=== PATIENT | female | born 1965 | race Caucasian/White ===

== ENCOUNTER 2021-11-06 11:56 | Emergency (ER) | payer BC ==
[~2021-11-06] VITALS: Ht 165.1 cm; Wt 70.3 kg
[2021-11-06 11:56] VITALS: BP_SYST 126
--- NOTE | 2021-11-06 11:56 | NUR ---
BROUGHT IN BY [facility], PLACED IN BED #3 AND TRIAGED. REPORT GIVEN MIKIE
--- NOTE | 2021-11-06 11:58 | NUR ---
DR. NUÑEZ AT BEDSIDE TO ASSESS PT.
--- NOTE | 2021-11-06 11:58 | NUR ---
PT BIBA, WITH C/O C/P. PT GIVEN ASA AND NITRO IN FIELD WITH NO RESOLVE, PT CALMED AFTER CONVERSATION WITH MEDICS. EKG NORMAL. PT IS AAOX4. RESP E/U. ON RA. TELE READING SINUS TACH.
[2021-11-06] MEDS ORDERED: MAG HYDROX/AL HYDROX/SIMETH 30 ML, DICYCLOMINE HCL 20 MG, LIDOCAINE VISCOUS 2% 15ML (PO... PO ONE ×3 (12:15)
--- NOTE | 2021-11-06 12:30 | NUR ---
LAB DRAW OBTAINED. MEDICATION ORAL GIVEN.
[2021-11-06 12:32] LABS: BASOPHILS % (AUTO) 0.4 % (0.0-2.0); EOSINOPHILS % (AUTO) 0.4 % (0.0-4.0); HEMATOCRIT 36.8 % (36-48); HEMOGLOBIN 12.5 g/dL (12.0-16.0); LYMPHOCYTES # (AUTO) 0.4 K/uL (1.0-5.5); LYMPHOCYTES % (AUTO) 5.4 % (20.5-51.5); MEAN CORPUSCULAR HEMOGLOBIN 28 pg (27-31); MEAN CORPUSCULAR HGB CONC 34 % (32-36); MEAN CORPUSCULAR VOLUME 84 fL (79.0-98.0); MONOCYTES # (AUTO) 0.3 K/uL (0.0-1.0); NEUTROPHILS # (AUTO) 6.9 K/uL (1.8-7.7); NEUTROPHILS % (AUTO) 89.8 % (40.0-70.0); PLATELET COUNT (AUTO) 275 K/uL (130-430); WHITE BLOOD COUNT (AUTO) 7.7 K/uL (4.8-10.8)
[2021-11-06 12:51] LABS: ANION GAP 8 (5-15); CALCIUM 8.8 mg/dL (8.4-11.0); CHLORIDE 103 mmol/L (98-107); CREATININE 0.83 mg/dL (0.55-1.30); GLUCOSE 95 mg/dL (70-99); SODIUM SERUM 135 mmol/L (136-145); UREA NITROGEN, BLOOD 18 mg/dL (8-21)
[2021-11-06 12:53] LABS: GFR AFRICAN AMERICAN 91 mL/min (>90)
[2021-11-06 13:00] LABS: ALANINE AMINOTRANSFERASE 11 U/L (12-78); ALBUMIN 3.2 g/dL (3.4-4.8); ASPARTATE AMINOTRANSFERASE 14 U/L (10-37); TOTAL BILIRUBIN 0.3 mg/dL (0.0-1.0)
--- NOTE | 2021-11-06 13:38 | NUR ---
PT HAS C/O L SCAPULA PAIN, PT APPEARS STRESSED AND SON STATES THAT SHE HAS ANXIETY. VALIUM PO 5MG GIVEN.
[2021-11-06] MEDS ORDERED: DIAZEPAM 5 MG TABLET (VALIUM) PO ONE (13:45)
[2021-11-06 14:14] LABS: PROTHROMBIN TIME 10.4 SECS (9.5-12.5)
--- NOTE | 2021-11-06 14:50 | NUR ---
Patient given written and verbal discharge instructions and verbalizes understanding. ER MD discussed with patient the results and treatment provided. Patient in stable condition. ID arm band removed. IV catheter removed intact and dressing applied, no active bleeding. Rx of MOTRIN, MACROBID, OMNEPROZOLE given. Patient educated on pain management and to follow up with PMD. Pain Scale 0/10. Opportunity for questions provided and answered. Medication side effect fact sheet provided.
[2021-11-06] MEDS ORDERED: IBUP-1969 PO (16:06)
[2021-11-06] MEDS ORDERED: NITR-85 PO (16:06)
[2021-11-06] MEDS ORDERED: OMEP20CA15 PO (16:06)
[2021-11-06] MEDS ORDERED: IBUPROFEN 800 MG TABLET PO ONE (16:15)
[2021-11-06] MEDS ORDERED: cefTRIAXone 1 GM in LIDOCAINE 1%, 20 ML MDV 2.1 ML IM ONE (16:15)
[2021-11-06] MEDS ORDERED: LIDOCAINE 1%, 20 ML MDV 20 ML ONE (16:20)
[2021-11-06 16:56] VITALS: BP_SYST 116
== END 2021-11-06 14:50 | disposition home or self-care (01) ==
LOC: SED 11:56
DX: K20.90 Esophagitis, unspecified without bleeding (principal); N39.0 Urinary tract infection, site not specified; R07.9 Chest pain, unspecified; R06.02 Shortness of breath; R42 Dizziness and giddiness; Z79.899 Other long term (current) drug therapy; Z20.822 Contact with and (suspected) exposure to COVID-19
CPT/HCPCS: 99285; 71045; 87426; 80053; 83880; 85025; 85379; 85610; 84484; 36415; 93005; 81002; 96372; J2001 ×2; J0696